=== PATIENT | male | born 1995 | race Caucasian/White ===

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

== ENCOUNTER 2017-02-01 18:15 | Emergency (ER) | payer OTHER ==
[2017-02-01 18:25] VITALS: RESP 16; TEMP 99.1
[2017-02-01] MEDS ORDERED: NS 1,000 ML IV ONE ×3 (19:01)
[2017-02-01] MEDS ORDERED: ONDANSETRON 4 MG/2 ML VIAL IVP ONE (19:02)
--- NOTE | 2017-02-01 19:22 | EDPHY ---
H & P Stated Complaint: vomit, diarrhea, fever x 3 days, ins diabetic Time Seen by Provider: 02/01/17 19:19 HPI/ROS: HPI: This is a 21-year-old male who presents with Chief Complaint: vomit, diarrhea, fever x 3 days, ins diabetic Location: Body Quality: Fever Duration: 3 days Signs and Symptoms: + fever, + nausea, + vomiting, no hematemesis, positive cough, no neck stiffness, no headache, + mild crampy abdominal pain no blood in stool, no diarrhea, no back pain, no urinary symptoms, no testicular/groin pain , no chest pain, no shortness of breath Timing: Sudden Severity: Moderate Context: Patient is a type 1 insulin-dependent diabetic. Does not have an insulin pump he uses insulin pens. He is a local [employer] student was diagnosed with bronchitis approximately 5 days ago per chest x-ray at the [facility] and given azithromycin and prednisone; today is his last dose; Influenza negative. Patient reports though that over the last 3 days he started to experience a fever accompanied by nausea, several episodes of vomiting and abdominal cramping. His blood sugars have been running in the 200- 300s Modifying Factors: Insulin, azithromycin, prednisone Comment: ROS: see HPI Constitutional: No fever, no chills, no weight loss Eyes: No blurred vision Respiratory: No shortness of breath, no cough Cardiovascular: No chest pain, no palpitations Gastrointestinal: No nausea, no vomiting, no diarrhea, no hematemesis, no blood in stool Genitourinary: No dysuria, no blood in urine Extremities: No myalgias, no edema Neurologic: No weakness, no numbness Skin: No rashes, no petechiae Hematologic: No bruising, no bleeding MEDICAL/SURGICAL/SOCIAL HISTORY: Medical history: Type 1 diabetic; insulin-dependent. Surgical history: Denies Social history: college student CONSTITUTIONAL: Pleasant white male teenager, awake and alert, no obvious distress HEENT: Atraumatic and normocephalic, PERRL, EOMI. Tympanic membranes clear. Oropharynx clear, no exudate and moist pink mucosa. Airway patent. No lymphadenopathy. No meningismus. Cardiovascular: Normal S1/S2, tachycardia, regular rhythm, without murmur rub or gallop. PULMONARY/CHEST: Symmetrical and nontender. Clear to auscultation bilaterally. Good air movement. No accessory muscle usage. ABDOMEN: Soft, nondistended, nontender, no rebound, no guarding, no peritoneal signs, no masses or organomegaly. No CVAT. EXTREMITIES: 2/2 pulses, strength 5/5, no deformities, no clubbing, no cyanosis or edema. NEUROLOGICAL: no focal neuro deficits. GCS 15. SKIN: Warm and dry, no erythema. no rash. Good capillary refill. Source: Patient Exam Limitations: No limitations - Personal History Current Tetanus/Diphtheria Vaccine: Unsure Current Tetanus Diphtheria and Acellular Pertussis (TDAP): Unsure - Medical/Surgical History Hx Asthma: No Hx Chronic Respiratory Disease: No Hx Diabetes: No Hx Cardiac Disease: No Hx Renal Disease: No Hx Cirrhosis: No Hx Alcoholism: No Hx HIV/AIDS: No Hx Splenectomy or Spleen Trauma: No Other PMH: asthma. ins dept diabetic - Social History Smoking Status: Never smoked Constitutional: Initial Vital Signs Temperature (C) 37.3 C 02/01/17 18:22 Heart Rate 118 H 02/01/17 18:22 Respiratory Rate 16 02/01/17 18:22 O2 Sat (%) 97 02/01/17 18:22 O2 Delivery Mode Room Air Allergies/Adverse Reactions: amoxicillin Allergy (Verified 02/01/17 18:22) Home Medications: Medication Instructions Recorded Albuterol 02/01/17 Insulin Glargine 02/01/17 Medical Decision Making - Diagnostics Imaging Results: Imaging Impressions Chest X-Ray 02/01/17 20:08 Impression: Mild perihilar bronchitis, without a focal infiltrate. ED Course/Re-evaluation: Labs, urinalysis, IV fluids, IV medications ordered Will evaluate for diabetic ketoacidosis Vital signs reviewed and show mild tachycardia greater than 3 L normal saline and IV Zofran upon arrival No signs of hypoxia, wheezing 1952: Potassium 3.6 and glucose serum 248. Given 5 units IV regular insulin. Comment dioxide and anion gap level within normal limits. No signs of DKA. Chest x-ray my read via PAC shows no focal opacity. 2119: Repeat blood sugar 184. Reassessed patient and he states that he feels "so much better." Asking to eat dinner. Differential Diagnosis: Differential diagnosis includes but is not limited to viral syndrome, influenza , strep, meningitis, diabetic ketoacidosis. - Data Points Laboratory Results: Laboratory Results 02/01/17 19:20 02/01/17 19:20 02/01/17 02/01/17 02/01/17 21:10 19:20 19:20 WBC 3.73 10^3/uL L 10^3/uL (3.80-9.50) RBC 4.94 10^6/uL 10^6/uL (4.40-6.38) Hgb 14.9 g/dL g/dL (13.7-17.5) Hct 41.5 % % (40.0-51.0) MCV 84.0 fL fL (81.5-99.8) MCH 30.2 pg pg (27.9-34.1) MCHC 35.9 g/dL g/dL (32.4-36.7) RDW 12.2 % % (11.5-15.2) Plt Count 210 10^3/uL 10^3/uL (150-400) MPV 9.4 fL fL (8.7-11.7) Neut % (Auto) 48.3 % % (39.3-74.2) Lymph % (Auto) 33.0 % % (15.0-45.0) [place] % (Auto) 16.6 % H % (4.5-13.0) Eos % (Auto) 0.0 % L % (0.6-7.6) Baso % (Auto) 0.5 % % (0.3-1.7) Nucleat RBC Rel Count 0.0 % % (0.0-0.2) Absolute Neuts (auto) 1.80 10^3/uL 10^3/uL (1.70-6.50) Absolute Lymphs (auto) 1.23 10^3/uL 10^3/uL (1.00-3.00) Absolute Monos (auto) 0.62 10^3/uL 10^3/uL (0.30-0.80) Absolute Eos (auto) 0.00 10^3/uL L 10^3/uL (0.03-0.40) Absolute Basos (auto) 0.02 10^3/uL 10^3/uL (0.02-0.10) Absolute Nucleated RBC 0.00 10^3/uL 10^3/uL (0-0.01) Immature Gran % 1.6 % H % (0.0-1.1) Immature Gran # 0.06 10^3/uL 10^3/uL (0.00-0.10) Sodium 134 mEq/L mEq/L (134-144) Potassium 3.6 mEq/L mEq/L (3.5-5.2) Chloride 96 mEq/L L mEq/L (97-110) Carbon Dioxide 24 mEq/l mEq/l (22-31) Anion Gap 14 mEq/L mEq/L (8-16) BUN 10 mg/dL mg/dL (7-23) Creatinine 1.1 mg/dL mg/dL (0.7-1.3) Estimated GFR > 60 Glucose 248 mg/dL H mg/dL (70-100) POC Glucose 184 mg/dL H mg/dL (70-100) Calcium 9.0 mg/dL mg/dL (8.5-10.4) Phosphorus 3.9 mg/dL mg/dL (2.5-4.5) Magnesium 1.6 mg/dL mg/dL (1.6-2.3) Beta-Hydroxybutyrate 0.69 mmol/L H mmol/L (0.02-0.27) Medications Given: Discontinued Medications Acetaminophen (Tylenol) 1,000 mg PO EDNOW ONE Stop: 02/01/17 20:10 Last Admin: 02/01/17 20:50 Dose: 1,000 mg Sodium Chloride (Ns) 1,000 mls @ 0 mls/hr IV ONCE ONE; Wide Open PRN Reason: Protocol Stop: 02/01/17 19:02 Last Admin: 02/01/17 19:15 Dose: 1,000 mls Sodium Chloride (Ns) 1,000 mls @ 0 mls/hr IV ONCE ONE; Wide Open PRN Reason: Protocol Stop: 02/01/17 19:02 Last Admin: 02/01/17 20:08 Dose: 1,000 mls Insulin Human Regular (Humulin R) 5 unit IVP EDNOW ONE Stop: 02/01/17 19:53 Last Admin: 02/01/17 20:27 Dose: 4 unit Ondansetron HCl (Zofran) 4 mg IVP EDNOW ONE Stop: 02/01/17 19:03 Last Admin: 02/01/17 19:43 Dose: Not Given Point of Care Test Results: 02/01/17 21:10 POC Glucose 184 H Departure - Departure Disposition: Home, Routine, Self-Care Clinical Impression: Bronchitis, Steroid-induced hyperglycemia Type 1 diabetes mellitus Qualifiers: Diabetes mellitus complication status: with hyperglycemia Qualified Code(s): E10.65 - Type 1 diabetes mellitus with hyperglycemia Condition: Good Instructions: Acute Bronchitis (ED), Diabetic Hyperglycemia (ED) Additional Instructions: Chest x-ray today did not show any signs of pneumonia. Please increase fluid intake to prevent dehydration and take insulin as previously prescribed. [facility] for repeat examination. Referrals: MAI,TANIA [Other] - As per Instructions [facility] [Clinic] - 02/05/17
[2017-02-01 19:36] LABS: % IMMATURE GRANULYOCYTES 1.6 % (0.0-1.1); ABSOLUTE IMMATURE GRANULOCYTES 0.06 10^3/uL (0.00-0.10); ADD DIFF? NO; ADD MORPH? NO; ADD SCAN? YES; FRAGMENT RBC FLAG 0 (0-99); HEMATOCRIT 41.5 % (40.0-51.0); HEMOGLOBIN 14.9 g/dL (13.7-17.5); LEFT SHIFT FLG 20 (0-99); LIPEMIA HEMOLYSIS FLAG 90 (0-99); MEAN CELL HEMOGLOBIN 30.2 pg (27.9-34.1); MEAN CELL HEMOGLOBIN CONCENTR. 35.9 g/dL (32.4-36.7); MEAN PLATELET VOLUME 9.4 fL (8.7-11.7); PLATELET CLUMPS FLAG 0 (0-99); PLATELET COUNT 210 10^3/uL (150-400); RED BLOOD CELL COUNT 4.94 10^6/uL (4.40-6.38); RED CELL DISTRIBUTION WIDTH 12.2 % (11.5-15.2)
[2017-02-01 19:46] LABS: ANION GAP 14 mEq/L (8-16); CARBON DIOXIDE 24 mEq/l (22-31); CHLORIDE 96 mEq/L (97-110); CREATININE 1.1 mg/dL (0.7-1.3); GLOMERULAR FILTRATION RATE > 60; GLUCOSE 248 mg/dL (70-100); MAGNESIUM 1.6 mg/dL (1.6-2.3); POTASSIUM 3.6 mEq/L (3.5-5.2); SODIUM 134 mEq/L (134-144)
[2017-02-01 19:48] LABS: ATYPICAL LYMPHOCYTE FLAG 170 (0-99)
[2017-02-01] MEDS ORDERED: INSULIN REGULAR HUMAN 100 UNIT/ML IVP ONE (19:52)
[2017-02-01] MEDS ORDERED: ACETAMINOPHEN 500 MG TAB PO ONE (20:09)
[2017-02-01 20:28] LABS: SCAN NEGATIVE
[2017-02-01 20:42] LABS: B-HYDROXYBUTYRATE 0.69 mmol/L (0.02-0.27)
[2017-02-01 21:25] VITALS: BP 167/99; PULSE 94; O2SAT 96
== END 2017-02-01 21:53 | disposition home or self-care (01) ==
DX: E10.65 Type 1 diabetes mellitus with hyperglycemia (principal); J40 Bronchitis, not specified as acute or chronic; T38.0X5A Adverse effect of glucocorticoids and synthetic analogues, initial encounter; E86.9 Volume depletion, unspecified
CPT/HCPCS: 96374; J1815; J2405

== ENCOUNTER → 2017-12-02 | Outpatient (CLI) | payer OTHER | LOC: BMCIMAGING 17:33 | PROVIDERS: ATTEND Family Medicine | DX: R05 Cough (principal) ==

== ENCOUNTER 2018-02-13 11:57 | Emergency (ER) | payer OTHER ==
[2018-02-13] MEDS ORDERED: NS 1,000 ML IV ONE ×3 (12:22→13:08)
[2018-02-13] MEDS ORDERED: ONDANSETRON 4 MG/2 ML VIAL IVP ONE (12:22)
[2018-02-13 12:56] LABS: PLATELET COUNT 448 10^3/uL (150-400)
--- NOTE | 2018-02-13 14:59 | EDPHY ---
H & P Time Seen by Provider: 02/13/18 12:55 HPI/ROS: Chief complaint. Nausea vomiting and low blood sugar HPI. Patient is 22-year-old male insulin-dependent diabetic awoke at 7:00 a.m. This morning with nausea vomiting. No diarrhea. His blood sugar is recorded on his nina on his phone. It was high during the night. He took 12 units of Humalog and then started to have nausea vomiting. Unable to keep food or fluids down. Blood sugar began to drop. Denies bad food or recent exposure to Infectious Disease. No abdominal pain. No chest pain or shortness of breath. No fever. No urinary symptoms. Blood sugar got down to about 60. ROS 10 systems were reviewed and negative with the exception of the elements mentioned in the history of present illness Past Medical/Surgical History: Insulin-dependent diabetes, asthma Social History: Single, nonsmoker, 2 glasses of wine last night Smoking Status: Never smoked Physical Exam: General Appearance: Well-developed male mild distress vital signs are stable. Initial heart rate 99 Eyes: Pupils equal and round no pallor or injection. ENT, mucous membranes are dry. No pharyngeal injection Respiratory: There are no retractions, lungs are clear to auscultation. Cardiovascular: Regular rate and rhythm. Gastrointestinal: Abdomen is soft and nontender, no masses, bowel sounds normal. Neurological: Awake and alert, sensory and motor exams grossly normal. Skin: Warm and dry, no rashes. Musculoskeletal: Neck is supple nontender. Extremities symmetrical, full range of motion. Psychiatric: Patient is oriented X 3, there is no agitation. Constitutional: Initial Vital Signs Temperature (C) 36.3 C 02/13/18 12:01 Heart Rate 99 02/13/18 12:01 Respiratory Rate 16 02/13/18 12:01 Blood Pressure 156/99 H 02/13/18 12:01 O2 Sat (%) 96 02/13/18 12:01 O2 Delivery Mode Room Air Allergies/Adverse Reactions: amoxicillin Allergy (Verified 02/01/17 18:22) Home Medications: Medication Instructions Recorded Albuterol 02/01/17 Insulin Glargine 02/01/17 Ondansetron Odt [Zofran Odt] 4 mg PO Q4PRN PRN #4 tab 02/13/18 Medical Decision Making Procedures: IV normal saline patient given 3 L of saline. He is given Zofran. Nausea resolves and so the patient's blood sugar is 65 initially. However he is able to drink Gatorade and yemi alexandro. ED Course/Re-evaluation: Serial re-evaluations patient continues to feel better. His blood sugar on the nina on his phone arises over 100 and up to 160. He is taking fluids. He has been up to the bathroom to urinate. He feels well to go home Patient and I discussed treatment plan including criteria for return importance of follow-up and further evaluation. He expresses understanding and agreement Differential Diagnosis: Insulin-dependent diabetic with nausea vomiting after he took his Humalog insulin. Experiencing hyperglycemia and mild dehydration. Symptoms are now resolved. No evidence for DKA - Data Points Laboratory Results: Laboratory Results 02/13/18 12:20 02/13/18 12:20 02/13/18 02/13/18 02/13/18 12:21 12:20 12:20 WBC 10.12 10^3/uL H 10^3/uL (3.80-9.50) RBC 5.40 10^6/uL 10^6/uL (4.40-6.38) Hgb 16.0 g/dL g/dL (13.7-17.5) POC Hgb 16.0 gm/dL gm/dL (13.7-17.5) Hct 45.0 % % (40.0-51.0) POC Hct 47 % % (40-51) MCV 83.3 fL fL (81.5-99.8) MCH 29.6 pg pg (27.9-34.1) MCHC 35.6 g/dL g/dL (32.4-36.7) RDW 11.9 % % (11.5-15.2) Plt Count 448 10^3/uL H 10^3/uL (150-400) MPV 9.8 fL fL (8.7-11.7) Neut % (Auto) 61.3 % % (39.3-74.2) Lymph % (Auto) 24.3 % % (15.0-45.0) [place] % (Auto) 10.8 % % (4.5-13.0) Eos % (Auto) 0.6 % % (0.6-7.6) Baso % (Auto) 1.1 % % (0.3-1.7) Nucleat RBC Rel Count 0.0 % % (0.0-0.2) Absolute Neuts (auto) 6.21 10^3/uL 10^3/uL (1.70-6.50) Absolute Lymphs (auto) 2.46 10^3/uL 10^3/uL (1.00-3.00) Absolute Monos (auto) 1.09 10^3/uL H 10^3/uL (0.30-0.80) Absolute Eos (auto) 0.06 10^3/uL 10^3/uL (0.03-0.40) Absolute Basos (auto) 0.11 10^3/uL H 10^3/uL (0.02-0.10) Absolute Nucleated RBC 0.00 10^3/uL 10^3/uL (0-0.01) Immature Gran % 1.9 % H % (0.0-1.1) Immature Gran # 0.19 10^3/uL H 10^3/uL (0.00-0.10) POC Sodium 143 mEq/L mEq/L (135-145) Sodium 142 mEq/L mEq/L (135-145) POC Potassium 3.5 mEq/L mEq/L (3.3-5.0) Potassium 4.0 mEq/L mEq/L (3.3-5.0) POC Chloride 101 mEq/L mEq/L (97-110) Chloride 103 mEq/L mEq/L (97-110) Carbon Dioxide 27 mEq/l mEq/l (22-31) Anion Gap 12 mEq/L mEq/L (6-14) POC BUN 11 mg/dL mg/dL (7-23) BUN 12 mg/dL mg/dL (7-23) Creatinine 0.7 mg/dL mg/dL (0.7-1.3) POC Creatinine 0.7 mg/dL mg/dL (0.7-1.3) Estimated GFR > 60 Glucose 65 mg/dL L mg/dL (70-100) POC Glucose 67 mg/dL L mg/dL (70-100) Calcium 10.1 mg/dL mg/dL (8.5-10.4) Medications Given: Discontinued Medications Sodium Chloride (Ns) 1,000 mls @ 0 mls/hr IV ONCE ONE PRN Reason: Wide Open Stop: 02/13/18 12:23 Last Admin: 02/13/18 12:25 Dose: 1,000 mls Sodium Chloride (Ns) 1,000 mls @ 0 mls/hr IV EDNOW ONE; Wide Open PRN Reason: Protocol Stop: 02/13/18 13:09 Last Admin: 02/13/18 13:10 Dose: 1,000 mls Sodium Chloride (Ns) 1,000 mls @ 0 mls/hr IV ONCE ONE; Wide Open PRN Reason: Protocol Stop: 02/13/18 13:09 Last Admin: 02/13/18 14:02 Dose: 1,000 mls Ondansetron HCl (Zofran) 4 mg IVP EDNOW ONE Stop: 02/13/18 12:23 Last Admin: 02/13/18 12:25 Dose: 4 mg Point of Care Test Results: Chemistry 02/13/18 12:21 POC Sodium 143 mEq/L mEq/L (135-145) POC Potassium 3.5 mEq/L mEq/L (3.3-5.0) POC Chloride 101 mEq/L mEq/L (97-110) POC BUN 11 mg/dL mg/dL (7-23) POC Creatinine 0.7 mg/dL mg/dL (0.7-1.3) POC Glucose 67 mg/dL L mg/dL (70-100) ISTAT H&H 02/13/18 12:21 POC Hgb 16.0 gm/dL gm/dL (13.7-17.5) POC Hct 47 % % (40-51) Departure - Departure Disposition: Home, Routine, Self-Care Clinical Impression: Hypoglycemia, Dehydration Vomiting Qualifiers: Vomiting type: unspecified Vomiting Intractability: non-intractable Nausea presence: with nausea Qualified Code(s): R11.2 - Nausea with vomiting, unspecified Condition: Good Instructions: Acute Nausea and Vomiting (ED) Additional Instructions: Frequent, small sips fluids. Gradual diet advancement Zofran if needed for nausea and vomiting Return for worsening symptoms Recheck in 1 day if not completely back to normal Referrals: NONE *PRIMARY CARE P,. [Primary Care Provider] - As per Instructions Prescriptions: Ondansetron Odt [Zofran Odt] 4 mg PO Q4PRN PRN #4 tab PRN Reason: Nausea/Vomiting, Use 1st
[2018-02-13 15:17] VITALS: BP 125/75
== END 2018-02-13 15:19 | disposition home or self-care (01) ==
DX: E11.649 Type 2 diabetes mellitus with hypoglycemia without coma (principal); E86.9 Volume depletion, unspecified; J45.909 Unspecified asthma, uncomplicated
CPT/HCPCS: 82435-PO; 82565-PO; 82947-PO; 84132-PO; 84295-PO; 84520-PO; 85014-PO; J2405

== ENCOUNTER 2018-06-05 13:27 | Emergency (ER) | payer OTHER ==
--- NOTE | 2018-06-05 14:35 | EDPHY ---
H & P Stated Complaint: Headache, fevers, nausea, bloody stool for 8 days, recent pneumonia Time Seen by Provider: 06/05/18 14:34 HPI/ROS: HPI: This is a 22-year-old male who presents with Chief Complaint: Headache, fevers, nausea, bloody stool for 8 days, recent pneumonia Location: Body Quality: Headache, fevers, nausea, blood in stool Duration: 8 days Signs and Symptoms: + subjective fever, + nausea, no vomiting, no diarrhea, no urinary symptoms, no chest pain, no shortness of breath, no wheezing, no cough, no sore throat, no neck stiffness, no joint pain, no swollen glands, no ear pain , no rash, + blood in stool, no abdominal pain, no testicular groin pain, no urinary symptoms Timing: Acute, improving Severity: Moderate Context: Patient Is a student at [employer], has a history of type 1 insulin-dependent diabetes mellitus with insulin pump and asthma presents with several day history of blood in his stool when he uses the bathroom. When pressed further he reports that he has not had a bowel movement in a day and a half. He reports that he had nausea and 1 episode of blood- tinged sputum approximately 3 days ago. Patient reports that he went to the urgent care yesterday and was diagnosed with pneumonia based on exam and not x- ray and started on doxycycline. Had negative strep, mono and influenza test yesterday. Patient denies any shortness of breath, wheezing. Mother is an RN and recommend he go to the emergency room for further evaluation. Does drink alcohol socially but denies regular NSAID use. Modifying Factors: See above Comment: ROS: A comprehensive 10 system review of systems is otherwise negative aside from elements mentioned in the history of present illness. MEDICAL/SURGICAL/SOCIAL HISTORY: Medical history: Diabetes mellitus, asthma Surgical history: Denies Social history: Student at [employer]. Never smoked. Family history noncontributory. CONSTITUTIONAL: Extremely well-appearing young adult white male, awake and alert, no obvious distress HEENT: Atraumatic and normocephalic, PERRL, EOMI. Nares patent; no rhinorrhea; no nasal mucosal edema. Tympanic membranes clear. Oropharynx clear, no exudate and moist pink mucosa. Airway patent. No lymphadenopathy. No meningismus. Cardiovascular: Normal S1/S2, regular rate, regular rhythm, without murmur rub or gallop. PULMONARY/CHEST: Symmetrical and nontender. Clear to auscultation bilaterally. Good air movement. No accessory muscle usage. ABDOMEN: Soft, nondistended, nontender, no rebound, no guarding, no peritoneal signs, no masses or organomegaly. No CVAT. RECTAL: Good sphincter tone, light brown stool in vault, no external hemorrhoids , no fissures, no palpable masses, guaiac negative EXTREMITIES: 2/2 pulses, strength 5/5, no deformities, no clubbing, no cyanosis or edema. NEUROLOGICAL: no focal neuro deficits. GCS 15. SKIN: Warm and dry, no erythema. no rash. Good capillary refill. Source: Patient Exam Limitations: No limitations - Personal History Current Tetanus Diphtheria and Acellular Pertussis (TDAP): Yes - Medical/Surgical History Hx Asthma: Yes Hx Chronic Respiratory Disease: No Hx Diabetes: Yes Hx Cardiac Disease: No Hx Renal Disease: No Hx Cirrhosis: No Hx Alcoholism: No Hx HIV/AIDS: No Hx Splenectomy or Spleen Trauma: No Other PMH: asthma. DM 1. - Social History Smoking Status: Never smoked Constitutional: Initial Vital Signs Temperature (C) 36.6 C 06/05/18 13:31 Heart Rate 88 06/05/18 13:31 Respiratory Rate 18 06/05/18 13:31 Blood Pressure 163/105 H 06/05/18 13:31 O2 Sat (%) 95 06/05/18 13:31 O2 Delivery Mode Room Air Allergies/Adverse Reactions: amoxicillin Allergy (Verified 02/01/17 18:22) Home Medications: Medication Instructions Recorded Albuterol 02/01/17 Insulin Glargine 02/01/17 Ondansetron Odt [Zofran Odt] 4 mg PO Q4PRN PRN #4 tab 02/13/18 Doxycycline Monohydrate 06/05/18 Medical Decision Making - Diagnostics Imaging Results: Imaging Impressions Abdomen X-Ray 06/05/18 15:06 Impression: Normal Abdomen (AP Supine and Upright Views, 3 Views Total): The bowel gas pattern appears normal, with no mechanical obstruction. There is no free air. There are a couple of surgical clips in the right lower quadrant of the abdomen. The osseous structures are age-appropriate. The splenic shadow appears borderline- enlarged, measuring 13.2 cm in cephalocaudal diameter. Correlation with a "mono " (EBV) test is suggested. Impression: 1. There is no evidence of bowel obstruction or free air. 2. Query mild splenomegaly. Correlation with a "mono test" may be of benefit, as clinically directed. Findings were discussed with Justine Flowers PA-C at 16:23, on 06/05/2018. ED Course/Re-evaluation: Vital signs reviewed and show mildly elevated blood pressure upon arrival. IV access, laboratory studies, abdominal x-ray and chest x-ray, guaiac stool ordered given 1 L normal saline Guaiac negative 1551: Labs reviewed. No signs of leukocytosis/anemia/platelet dysfunction/JESSIKA/ elevated LFTs/electrolyte imbalance/pancreatitis. Glucose 221; no signs of DKA Abdominal x-ray my read shows no signs of obstruction. Chest x-ray my read shows no effusion, no opacity, no widened mediastinum, no pneumothorax. Advised supportive care, avoid NSAIDs. This patient was seen under the supervision of my secondary supervising physician. I evaluated care for this patient independently. Differential Diagnosis: Differential diagnosis includes but is not limited to hemorrhoids, colitis, diverticulitis, gastritis, asthma exacerbation, community-acquired pneumonia. - Data Points Laboratory Results: Laboratory Results 06/05/18 15:15 06/05/18 15:15 06/05/18 06/05/18 06/05/18 15:15 15:15 15:15 WBC 6.53 10^3/uL 10^3/uL (3.80-9.50) RBC 5.64 10^6/uL 10^6/uL (4.40-6.38) Hgb 16.2 g/dL g/dL (13.7-17.5) Hct 46.5 % % (40.0-51.0) MCV 82.4 fL fL (81.5-99.8) MCH 28.7 pg pg (27.9-34.1) MCHC 34.8 g/dL g/dL (32.4-36.7) RDW 11.7 % % (11.5-15.2) Plt Count 335 10^3/uL 10^3/uL (150-400) MPV 10.2 fL fL (8.7-11.7) Neut % (Auto) 59.5 % % (39.3-74.2) Lymph % (Auto) 27.9 % % (15.0-45.0) [place] % (Auto) 9.3 % % (4.5-13.0) Eos % (Auto) 0.3 % L % (0.6-7.6) Baso % (Auto) 0.9 % % (0.3-1.7) Nucleat RBC Rel Count 0.0 % % (0.0-0.2) Absolute Neuts (auto) 3.88 10^3/uL 10^3/uL (1.70-6.50) Absolute Lymphs (auto) 1.82 10^3/uL 10^3/uL (1.00-3.00) Absolute Monos (auto) 0.61 10^3/uL 10^3/uL (0.30-0.80) Absolute Eos (auto) 0.02 10^3/uL L 10^3/uL (0.03-0.40) Absolute Basos (auto) 0.06 10^3/uL 10^3/uL (0.02-0.10) Absolute Nucleated RBC 0.00 10^3/uL 10^3/uL (0-0.01) Immature Gran % 2.1 % H % (0.0-1.1) Immature Gran # 0.14 10^3/uL H 10^3/uL (0.00-0.10) Sodium 136 mEq/L mEq/L (135-145) Potassium 4.2 mEq/L mEq/L (3.5-5.2) Chloride 99 mEq/L mEq/L (97-110) Carbon Dioxide 24 mEq/l mEq/l (22-31) Anion Gap 13 mEq/L mEq/L (6-14) BUN 10 mg/dL mg/dL (7-23) Creatinine 0.8 mg/dL mg/dL (0.7-1.3) Estimated GFR > 60 Glucose 212 mg/dL H mg/dL (70-100) Calcium 9.5 mg/dL mg/dL (8.5-10.4) Total Bilirubin 0.7 mg/dL mg/dL (0.1-1.4) Conjugated Bilirubin 0.5 mg/dL mg/dL (0.0-0.5) Unconjugated Bilirubin 0.2 mg/dL mg/dL (0.0-1.1) AST 26 IU/L IU/L (17-59) ALT 24 IU/L IU/L (21-72) Alkaline Phosphatase 121 IU/L IU/L (38-126) Total Protein 7.6 g/dL g/dL (6.3-8.2) Albumin 4.4 g/dL g/dL (3.5-5.0) Lipase 126 IU/L IU/L (23-300) Stool Occult Bld Scrn Monoscreen Pending 06/05/18 15:05 WBC RBC Hgb Hct MCV MCH MCHC RDW Plt Count MPV Neut % (Auto) Lymph % (Auto) [place] % (Auto) Eos % (Auto) Baso % (Auto) Nucleat RBC Rel Count Absolute Neuts (auto) Absolute Lymphs (auto) Absolute Monos (auto) Absolute Eos (auto) Absolute Basos (auto) Absolute Nucleated RBC Immature Gran % Immature Gran # Sodium Potassium Chloride Carbon Dioxide Anion Gap BUN Creatinine Estimated GFR Glucose Calcium Total Bilirubin Conjugated Bilirubin Unconjugated Bilirubin AST ALT Alkaline Phosphatase Total Protein Albumin Lipase Stool Occult Bld Scrn NEGATIVE (NEGATIVE) Monoscreen Medications Given: Discontinued Medications Sodium Chloride (Ns) 1,000 mls @ 0 mls/hr IV EDNOW ONE; Wide Open PRN Reason: Protocol Stop: 06/05/18 15:07 Last Admin: 06/05/18 15:31 Dose: 1,000 mls Departure - Departure Disposition: Home, Routine, Self-Care Clinical Impression: Blood in stool, Viral syndrome Condition: Good Instructions: Viral Syndrome (ED), Melena (ED) Additional Instructions: Consume a minimum of 8-10 glasses of water or electrolyte fluid replacement drinks that include Gatorade, Powerade, Pedialyte. Eat a bland diet for the next 48 hours and then slowly advance as tolerated. Avoid taking NSAIDs which include ibuprofen, Aleve, Advil, Motrin. Avoid alcohol use. Return to the Emergency Room if symptoms do not resolve in the next 72 hours, you spike a fever > 102 F, or experience intractable abdominal pain/nausea/ vomiting. Referrals: EVA BANEGAS [Other] - 5-7 days, if not improved Stand Alone Forms: School Excuse
[2018-06-05] MEDS ORDERED: NS 1,000 ML IV ONE (15:06)
[2018-06-05 15:33] LABS: PLATELET COUNT 335 10^3/uL (150-400)
[2018-06-05 16:30] VITALS: BP 133/87
== END 2018-06-05 16:15 | disposition home or self-care (01) ==
DX: K92.1 Melena (principal); B34.9 Viral infection, unspecified; E86.9 Volume depletion, unspecified; J45.909 Unspecified asthma, uncomplicated; E10.9 Type 1 diabetes mellitus without complications; Z79.4 Long term (current) use of insulin